=== PATIENT | male | born 1950 | race Caucasian/White ===

== ENCOUNTER 2019-11-15 15:25 | Inpatient (IN) ==
[2019-11-15] MEDS ORDERED: ZOFRAN IV PRN (16:32)
[2019-11-15] MEDS ORDERED: TYLENOL PO PRN (16:32)
[2019-11-15] MEDS ORDERED: NORCO-10 PO PRN (16:32)
[2019-11-15] MEDS ORDERED: NS 1,000 ML IV SCH ×2 (16:32→17:19)
--- NOTE | 2019-11-15 16:53 | EKG Report ---
Test Performed on : 11/15/2019 4:42:18 PM Test Reason : chest pain Blood Pressure : / mmHG Vent. Rate : 108 BPM Atrial Rate : 108 BPM P-R Int : 142 ms QRS Dur : 138 ms QT Int : 356 ms P-R-T Axes : 022 -64 043 degrees QTc Int : 477 ms Sinus tachycardia. Right bundle branch block Left anterior fascicular block Bifascicular block Abnormal ECG When compared with ECG of 04-MAR-2019 23:02, fusion complexes are no longer present Nonspecific T wave abnormality has replaced inverted T waves in Anterior leads Confirmed by Alfie TSANG, Wyatt Franco ([id number]) on 11/15/2019 6:03:25 PM
[2019-11-15] MEDS ORDERED: FLU VACCINE IM ONE (17:14)
--- NOTE | 2019-11-15 17:22 | Diag Imaging Result Doc PS360 ---
EXAM: CHEST-PORTABLE 11/15/2019 HISTORY: weakness TECHNIQUE: AP portable at 1650 COMMENT: There is a calcified nodule over the left lower lobe which has not changed since 03/04/2019. Otherwise the appearance the chest has not changed significantly. IMPRESSION: Stable chest. Electronically signed by Azael Patiño 11/15/2019 5:20 PM
--- NOTE | 2019-11-15 17:48 | HISTORY AND PHYSICAL ---
HISTORY OF PRESENT ILLNESS: Mr. Flower was brought in by his . He can barely stand. He has been very weak. This has been going on progressively for the last 5 or 6 days, but the last couple of days he has not eaten or drank much. He has had some nausea. No diarrhea. No real hard fever or chills. PAST MEDICAL HISTORY: 1. 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 He was treated at [facility] that was in 1993. 2. History of DVT. 3. Hypertension. 4. Hypercholesterolemia. 5. He is on chronic Coumadin. 6. He had orbital rupture 2 years ago in September and went to [facility] for repair. SOCIAL HISTORY: Two children. Negative for alcohol or tobacco. FAMILY HISTORY: Noncontributory. REVIEW OF SYSTEMS: General: No weight gain or loss that he was aware of. No fever chills. HEENT: Unremarkable other than orbital rupture on the right eye, loss of vision in the right eye. Cardiovascular: No chest pain or tachy palpitations. Gastrointestinal and Genitourinary: No gross hematuria dysuria, just anorexia. No appetite. Very weak. Musculoskeletal/Neurologic: No new changes or focal neurologic changed. Endocrinologic/Hematologic: No significant history. ASSESSMENT AND PLAN: He appears dehydrated. PHYSICAL EXAM: GENERAL: On exam well-developed, well-nourished, white male, awake, oriented x3. HEENT: Pupils are equal. Conjunctivae is pink. Sclerae clear. CVP less than 6 cm. LUNGS: Clear in all lung hopkins. CARDIOVASCULAR: Regular rhythm and rate without murmur or S3. ABDOMEN: Soft. SKIN: Warm and dry. He has 1+ pitting edema in the ankles to mid sheth which is normal for him. MUSCULOSKELETAL/NEUROLOGIC: No focal neurologic changes. ASSESSMENT AND PLAN: 1. Dehydration, suspect maybe a viral gastroenteritis with anorexia and nausea. We will give him some fluids. I am going to check his renal function, electrolytes and CBC. We will check his liver functions as well. 2. History of a CVA back in 1993, basilar artery thrombosis. 3. Hypertension. 4. Hypercholesterolemia. 5. Benign prostatic hypertrophy. 6. Orbital rupture on the right eye in the past. cc: Gabo Chandler MD
[2019-11-15 18:33] LABS: BASO# 0.13 X1000 (0.0-0.2); BASO% 0.6 % (0.0-0.8); HEMATOCRIT 43.4 % (42.0-52.0); HEMOGLOBIN 14.3 g/dL (14.0-18.0); IMM GRAN# 0.08 X1000 (0.0-0.04); IMM GRAN% 0.4 % (0.0-0.5); LYMPH% 1.9 % (20.5-51.1); MCH 30.6 PG (27-31); MCHC 32.9 g/dL (33-37); MCV 92.7 FL (81-99); MONO# 1.43 X1000 (0.11-0.59); MONO% 6.7 % (1.7-9.3); MPV 10.8 FL (7.4-10.4); NEUT# 19.38 X1000 (1.4-6.5); NEUT% 90.4 % (42.2-75.2); PLT 191 X1000 (130-400); RBC 4.68 XMIL (4.7-6.1); RDW 14.2 % (11.5-14.5); WBC 21.42 X1000 (4.8-10.8)
[2019-11-15 18:36] LABS: INR 1.83; PROTIME 21.6 Seconds (11.0-16.0)
[2019-11-15 18:37] LABS: PTT 38.1 Seconds (22.3-41.8)
[2019-11-15 18:51] LABS: ALB/GLOB RATIO 1.1; ALBUMIN 3.1 g/dL (3.5-5.0); CALCIUM 9.5 mg/dL (8.8-10.2); MAGNESIUM 1.5 mg/dL (1.5-2.7); POTASSIUM 3.6 mmol/L (3.5-5.1); TOTAL BILIRUBIN 6.17 mg/dL (0.20-1.00)
[2019-11-15 19:01] LABS: BANDS 15 % (0-1); MONO 7 % (1-9); SEGS 78 % (42-75)
[2019-11-15] MEDS: ZOCOR PO SCH ×2 (22:07→22:09)
[2019-11-15] MEDS: COUMADIN PO SCH ×2 (22:07→22:09)
[2019-11-15 22:46] LABS: URINE SOURCE CLEAN CATCH
[2019-11-15 23:06] LABS: BILIRUBIN URINE SMALL (NEGATIVE); BLOOD URINE TRACE (NEGATIVE); COLOR YELLOW; GLUCOSE URINE NEGATIVE (NEGATIVE); KETONE URINE NEGATIVE (NEGATIVE); LEUKOCYTES URINE NEGATIVE (NEGATIVE); NITRITE URINE NEGATIVE (NEGATIVE); PH URINE 5.5; PROTEIN URINE 30 mg/dL (NEGATIVE); SP GRAVITY URINE 1.013; TURBIDITY URINE HAZY (CLEAR); UROBILINOGEN URINE 3 mg/dL (NORMAL)
[2019-11-15 23:14] LABS: UR EPITHELIAL CELLS <10 /HPF (<10); URINE BACTERIA NEGATIVE /HPF; URINE WBC TNTC /HPF (<10)
[2019-11-15 23:20] LABS: URINE CASTS NONE SEEN; URINE CRYSTALS NONE SEEN; URINE SMALL ROUND CELLS NONE SEEN; URINE YEAST NONE SEEN
[2019-11-16] MEDS: NS 1,000 ML IV SCH ×2 (04:39→18:19)
[2019-11-16] MEDS ORDERED: ACTOS PO SCH (09:00)
[2019-11-16] MEDS: PRINIVIL PO SCH (09:56)
[2019-11-16] MEDS: FLOMAX PO SCH (09:56)
--- NOTE | 2019-11-16 10:49 | PROGRESS NOTE ---
DATE: 11/16/2019 SUBJECTIVE: Mr. Flower feels better today. He had a pretty good night sleep. I talked to his . She is worried about his general weakness and so we may start some physical therapy. He also has trouble with urinary incontinence at times. He is on Flomax. I suspect this is from benign prostatic hypertrophy and bladder retention. OBJECTIVE: Temperature 98.2 degrees, pulse 56, respirations 18, blood pressure 110/61.HEENT: Pupils are equal and round. Lungs: Clear in all lung hopkins. Cardiovascular: Regular rhythm and rate without murmur or S3. Abdomen: Soft. Skin: Warm and dry. LABORATORY DATA: White count when he presented was 21,420, hematocrit 43, platelet count was 191,000, and he did have predominantly neutrophils. Sodium 139, potassium 3.6, chloride 99, BUN 20, creatinine 2.0. AST was 123, ALT was 201, alkaline phosphatase was 133. Urinalysis unremarkable. Chest x-ray on presentation, stable chest. There is a calcified nodule over the left lower lobe which is not changed since 03/04/2019. ASSESSMENT AND PLAN: 1. He appeared dehydrated. I am not sure why he has elevation of his transaminases. I am going to check hepatitis profile and I suspect he had a viral illness. 2. Leukocytosis with really a left shift. I do not see evidence clearly of a bacterial infection. His urine was unremarkable. Chest x-ray with no infiltrate. 3. History of a posterior cerebral CVA. This has been over 20 years ago. 4. Ruptured orbit on the right side. 5. Hypertension. 6. Hyperlipidemia and it looked like he had presented with volume contraction. So I will get an abdominal ultrasound to look at his liver. We will get hepatitis profile and will get physical therapy to evaluate him today. cc: Gabo Chandler MD
--- NOTE | 2019-11-16 14:36 | Diag Imaging Result Doc PS360 ---
EXAM: US ABDOMEN-COMPLETE HISTORY: elevated transaminases TECHNIQUE: Abdominal ultrasound COMPARISON: None. FINDINGS: No abdominal aortic aneurysm. Normal inferior vena cava. There is a 7 mm hyperechoic nodule in the right lobe. No other hepatic abnormality. Normal right kidney. No hydronephrosis. The pancreas is obscured. The common bile duct measures 5 mm. The gallbladder is not identified. The spleen measures 14.3 cm in length. The scattered granuloma. A 1.0 cm cyst arises from the upper pole of the left kidney. No hydronephrosis. IMPRESSION: 1.Mild splenomegaly 2.The gallbladder is not identified 3.Small left renal cyst 4.Nonspecific tiny hyperechoic hepatic nodule which may simply be a small hemangioma Electronically signed by Wero Mondragon 11/16/2019 2:33 PM
[2019-11-16] MEDS: ZOCOR PO SCH (23:24)
[2019-11-16] MEDS: COUMADIN PO SCH (23:24)
[2019-11-17 07:24] LABS: AGAP 12; ALB/GLOB RATIO 0.8; ALBUMIN 3.2 g/dL (3.5-5.0); ALKALINE PHOSPHATASE 128 U/L (32-122); BUN 18 mg/dL (8-22); CALCIUM 9.1 mg/dL (8.8-10.2); CHLORIDE 101 mmol/L (98-107); COSMO 282; ESTIMATED GFR > 60; GLUCOSE 109 mg/dL (70-104); GOT 60 U/L (10-34); GPT 142 U/L (10-44); PHOSPHORUS 2.1 mg/dL (2.7-4.5); POTASSIUM 3.3 mmol/L (3.5-5.1); SODIUM 140 mmol/L (136-145); TCO2 27 mmol/L (25-35); TOTAL BILIRUBIN 2.29 mg/dL (0.20-1.00)
[2019-11-17 07:42] VITALS: BP 169/59
--- NOTE | 2019-11-17 08:09 | DISCHARGE SUMMARY ---
ADMISSION DATE: 11/15/2019 DISCHARGE DATE: 11/17/2019 HISTORY AND HOSPITAL COURSE: Mr. Flower was brought in by his . He could barely stand, very weak, was not eating or drinking much in the last couple of days. Noted that his transaminases were elevated when he came in. AST 123, ALT 201, total bilirubin was 6.17, albumin 3.1. These were repeated on the and they came down nicely. Bilirubin down to 2.29, AST was 60, ALT was 142. Blood sugars were a little on the low side, 132, 87, 91 and 97. He felt better. There was still some confusion and some delirium. He pulled out his IV, but he was eating and drinking and able to ambulate and his blood count when he came in was 21,420, so clinically he improved. A viral hepatitis profile was pending. It looks like he had a viral illness. We did an ultrasound of his abdomen. I did not see fatty liver change. Mild splenomegaly. Gallbladder not identified. Small left renal cyst. Nonspecific tiny hyperechoic hepatic nodule which may be just a hematoma. Bilirubin came down nicely as well, so I will let him go home. DISCHARGE MEDICINES: Prinivil 10 mg daily. I am going to stop his Actos. He can take his Zocor 20 mg a day. He takes Flomax 0.4 mg a day, and he is on his Coumadin 6 mg a day. His protime was 21.6. I will follow him up in the clinic in a week and we will let him go home. I am going to check another CBC and I am just going to check an ammonia level before he leaves. cc: Gabo Chandler MD
[2019-11-17] MEDS: FLOMAX PO SCH (08:41)
[2019-11-17] MEDS: PRINIVIL PO SCH (08:42)
[2019-11-17 09:03] LABS: FREE T4 1.44 ng/dL (0.93-1.70); TSH 3.3 uIUmL (0.27-4.20)
[2019-11-17 09:29] LABS: BASO# 0.01 X1000 (0.0-0.2); BASO% 0.1 % (0.0-0.8); EOS# 0.26 X1000 (0.0-0.7); EOS% 3.3 % (0.0-10.0); HEMATOCRIT 40.6 % (42.0-52.0); HEMOGLOBIN 13.2 g/dL (14.0-18.0); IMM GRAN# 0.07 X1000 (0.0-0.04); IMM GRAN% 0.9 % (0.0-0.5); LYMPH% 6.3 % (20.5-51.1); MCH 30.2 PG (27-31); MCHC 32.5 g/dL (33-37); MCV 92.9 FL (81-99); MONO# 0.73 X1000 (0.11-0.59); MONO% 9.3 % (1.7-9.3); MPV 10.7 FL (7.4-10.4); NEUT# 6.31 X1000 (1.4-6.5); NEUT% 80.1 % (42.2-75.2); PLT 180 X1000 (130-400); RBC 4.37 XMIL (4.7-6.1); RDW 14.1 % (11.5-14.5); WBC 7.88 X1000 (4.8-10.8)
[2019-11-18 11:35] LABS: HEPATITIS PROFILE ACUTE SEE COMMENTS
== END 2019-11-17 09:29 | disposition home health service (06) | DRG 641 ==
LOC: DIRADM 15:25 → 4N 16:24
PROVIDERS: ADMIT Emergency Medicine; ATTEND Emergency Medicine